=== PATIENT | female | born 1945 | race Caucasian/White ===

== ENCOUNTER → 2017-01-21 | Outpatient (CLI) | payer MEDICARE, MEDICAID ==
[2017-01-21 11:24] LABS: ALBUMIN 4.4 g/dl (3.3-4.9); ALBUMIN/GLOBULIN RATIO 1.1; BILIRUBIN,INDIRECT 0.3 mg/dl (0-1.1); BILIRUBIN,TOTAL 0.3 mg/dl (0.2-1.3); CALCIUM 9.6 mg/dl (8.4-10.2); CREATININE 0.93 mg/dl (0.44-1.00); PHOSPHORUS 4.6 mg/dl (2.5-4.9); POTASSIUM 4.5 mmol/L (3.5-5.1); TOTAL PROTEIN 8.4 g/dl (6.1-8.1); URIC ACID 5.2 mg/dl (3.1-7.9)
--- NOTE | 2017-01-21 11:39 | RADRPT ---
PROCEDURE: US Renal CLINICAL INDICATION: Chronic kidney disease. TECHNIQUE: Multiple sonographic images of the kidneys and bladder were obtained. Evaluation of th e kidneys and bladder was performed as well with skaggs scale and color and Doppler evaluation using a curved array transducer. The images were reviewed on a high-resolution PACS workstation. COMPARISON: 01/15/2013. FINDINGS: The right kidney measures 8.9 x 4.0 x 3.3 cm. The left kidney measures 9.0 x 5.2 x 5.0 cm. Mildly echogenic appearance the renal parenchyma bilaterally. There is no evidence of hydronephrosis. There is a tiny echogenic focus in the mid pole left kidney which may represent a nonobstructing kathleen culus.. No perinephric fluid collection is seen. Evaluation of the urinary bladder is unremarkable. IMPRESSION: 1. Possible nonobstructing calculus in the mid pole of the left kidney. 2. Mildly echogenic renal parenchyma bilaterally suggesting medical renal disease. RPTAT: [facility] Physician Donna Date Time Electronically viewed and signed by Physician Donna on 01/21/2017 11:39 GERARD/
== END | disposition home or self-care (01) ==
LOC: LAB 10:27
PROVIDERS: ATTEND Internal Medicine Nephrology
DX: N18.9 Chronic kidney disease, unspecified (principal)
CPT/HCPCS: 76775; 80053; 84100; 84560